=== PATIENT | male | born 1990 | race Caucasian/White ===

== ENCOUNTER 2016-08-05 22:11 | Emergency (ER) | payer OTHER ==
[~2016-08-05] VITALS: Ht 188 cm; Wt 104.5 kg
[2016-08-05 22:14] VITALS: BP 146/101
[2016-08-05] MEDS ORDERED: KEFLEX500 MG PO (22:53)
== END 2016-08-05 23:24 | disposition home or self-care (01) ==
LOC: EME 22:11
PROC: 3E0234Z Introduction of Serum, Toxoid and Vaccine into Muscle, Percutaneous Approach (ICD-10-PCS; principal; 2016-08-05)
DX: S61.431A Puncture wound without foreign body of right hand, initial encounter (principal); S60.512A Abrasion of left hand, initial encounter; Y35.491A Legal intervention involving other sharp objects, law enforcement official injured, initial encounter; Y99.0 Civilian activity done for income or pay
CPT/HCPCS: 73130; 99281; 99284

== ENCOUNTER 2017-09-21 13:49 | Emergency (ER) | payer OTHER ==
[~2017-09-21] VITALS: Ht 185.4 cm; Wt 107.1 kg
[~2017-09-21 13:49] MED LIST: KEFLEX500 MG PO
[2017-09-21 15:32] LABS: CHLORIDE 104 MEQ/L (99-109); CREATININE 1.1 MG/DL (0.6-1.3); GFR ESTIMATE (CALCULATED) > 59 mL/min/ (58.99-99999); GLUCOSE 87 mg/dL (70-99); POTASSIUM 4.2 MEQ/L (3.7-5.4); SODIUM 139 MEQ/L (136-147); UREA NITROGEN (BUN) 14 mg/dL (9-23)
[2017-09-21 17:48] VITALS: BP 129/94
[2017-09-22 11:33] LABS: HEPATITIS C ANTIBODY Nonreactive
[2017-09-22 11:45] LABS: HEPATITIS B SURFACE ANTIBODY REACTIVE
[2017-09-22 12:53] LABS: HIV-1/2 AB/AG COMBO Nonreactive
== END 2017-09-21 17:49 | disposition home or self-care (01) ==
LOC: EME 13:49
PROVIDERS: Physician Assistant
DX: Z77.21 Contact with and (suspected) exposure to potentially hazardous body fluids (principal); Y99.0 Civilian activity done for income or pay
CPT/HCPCS: 80048; 85027; 86706; 86803; 87389; 99281; 99283